=== PATIENT | male | born 1975 | race Caucasian/White ===

== ENCOUNTER → 2016-06-07 | Outpatient (CLI) | payer OTHER ==
[2016-06-07 12:46] LABS: CHLORIDE,CL 102 mmol/L (98-110); SODIUM,NA 139 mmol/L (136-146)
== END ==
LOC: MW.CHFP 11:58
PROVIDERS: ATTEND Emergency Medicine
DX: I10 Essential (primary) hypertension (principal); E78.5 Hyperlipidemia, unspecified; E11.65 Type 2 diabetes mellitus with hyperglycemia
CPT/HCPCS: 36415; 80053; 80061; 82044; 83036

== ENCOUNTER 2017-03-29 05:23 | Emergency (ER) | payer OTHER ==
[2017-03-29] MEDS ORDERED: Diphtheria,Pertussis(Acell),Tetanus Vaccine 0.5 ML Syringe IM ONE (05:29)
[2017-03-29] MEDS ORDERED: Sodium Chloride 0.9% 1,000 ML IV ONE (05:29)
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
[2017-03-29] MEDS ORDERED: LORazepam 2 MG/ML SDV IVPUSH ONE (06:14)
[2017-03-29 06:40] LABS: CHLORIDE,CL 86 mmol/L (98-110); SODIUM,NA 129 mmol/L (136-146)
[2017-03-29 06:49] LABS: ACETAMINOPHEN < 3.0 ug/mL
[2017-03-29] MEDS ORDERED: Insulin Regular, Human 100 Units/ML 10 ML Vial SUBCUT ONE (07:11)
[2017-03-29] MEDS ORDERED: KCL IV SCH (07:15)
[2017-03-29] MEDS ORDERED: NS IV SCH (07:15)
[2017-03-29] MEDS ORDERED: Potassium Chloride 20 MEQ Tab.ER ONE (07:18)
[2017-03-29] MEDS ORDERED: Potassium Chloride 20 MEQ Tab.ER PO ONE (07:22)
[2017-03-29] MEDS ORDERED: Ziprasidone Mesylate 20 MG Vial IM ONE (07:38)
[2017-03-29] MEDS ORDERED: Bacitracin Oint 1 GM U/D Packet TOP ONE (07:38)
[2017-03-29] MEDS ORDERED: Water For Injection, Sterile 20 ML ONE (07:46)
[2017-03-29] MEDS ORDERED: Sodium Chloride 0.9% 1,000 ML IV SCH (08:00)
[2017-03-29] MEDS ORDERED: Ziprasidone Mesylate 20 MG Vial ONE (08:43)
[2017-03-29] MEDS ORDERED: Potassium Chloride 10% 20 MEQ/15 ML Soln 30 ML UD Cup PO SCH (09:00)
--- NOTE | 2017-03-31 13:57 | CR ---
EXAM DATE: 03/29/17 PATIENT'S AGE: 42 Patient: ANILA GUIDRY Facility: [place], [place] Site . Site : 1975 Study: XRay Chest [id number]/3/2018 6:16:42 AM Ordering Physician: Doctor Gill Final Report: Indication: Fall Technique: Chest 1 view. Comparison: May 10, 2013 Findings: Cardiovascular and mediastinum: Heart size and vasculature are normal in caliber and appearance. Mediastinum is within normal limits. Lungs and pleural space: Lungs are clear. No sign of infiltrate or mass. No sign of pleural effusion. No pneumothorax. Bones and soft tissues: No significant findings. Impression: No sign of acute abnormality. Dictated by Lidia Moore MD @ Mar 29 2017 6:33AM (Electronic Signature) Report Signed by Proxy. TANIA
--- NOTE | 2017-03-31 13:58 | CR ---
EXAM DATE: 03/29/17 PATIENT'S AGE: 42 Patient: ANILA GUIDRY Facility: [place], [place] Site . Site : 1975 Study: XRay Knee [id number]/3/2018 6:17:03 AM Ordering Physician: Zelda Olson Final Report: Indication: Fall Technique: Frontal and lateral views bilateral knees Comparison: None Findings: Bones: Alignment is normal. No fractures or subluxation. Joint spaces: Unremarkable. Soft tissues: Unremarkable. Impression: No acute abnormality. Dictated by Lidia Moore MD @ Mar 29 2017 6:35AM (Electronic Signature) Report Signed by Proxy. TANIA
--- NOTE | 2017-03-31 13:59 | CR ---
EXAM DATE: 03/29/17 PATIENT'S AGE: 42 Patient: ANILA GUIDRY Facility: [place], [place] Site . Site : 1975 Study: XRay Pelvis [id number]/3/2018 6:19:23 AM Ordering Physician: Zelda Olson Final Report: Indication: Fall Technique: Frontal view pelvis Comparison: None Findings: Bones: Alignment is normal. No fractures or bone lesions. Joint spaces: Unremarkable. Soft tissues: Unremarkable. Impression: Negative. Dictated by Lidia Moore MD @ Mar 29 2017 6:36AM (Electronic Signature) Report Signed by Proxy. TANIA
== END 2017-03-29 08:53 ==
LOC: MW.ED 05:23
DX: E87.6 Hypokalemia (principal); E87.1 Hypo-osmolality and hyponatremia; E11.65 Type 2 diabetes mellitus with hyperglycemia; R44.1 Visual hallucinations; Z79.899 Other long term (current) drug therapy
CPT/HCPCS: 36415; 71045; 72170; 73560; 80053; 80305; 81001; 82962; 84443; 85025; 90715; 93005; 96361; 96365; 96372; 96375; 99285; A9270; G0480; J2060; J3480; J3486; J7040; J7050; 99283; J1815-GY

== ENCOUNTER 2022-07-05 06:59 | Emergency (ER) | payer OTHER ==
[2022-07-05] MEDS ORDERED: Lactated Ringers 1,000 ML IV ONE (07:13)
[2022-07-05] MEDS ORDERED: Ondansetron 4 MG/2 ML SDV IVPUSH ONE (07:13)
[2022-07-05] MEDS ORDERED: LORazepam 2 MG/ML SDV IVPUSH ONE (07:13)
[2022-07-05 07:29] LABS: APPEARANCE,URINE CLEAR; BILIRUBIN,URINE NEGATIVE (NEGATIVE); COLOR,URINE YELLOW; GLUCOSE,URINE 500 mg/dL (NEGATIVE); KETONES,URINE TRACE mg/dL (NEGATIVE); LEUKOCYTE ESTERASE,URINE NEGATIVE (NEGATIVE); NITRITE,URINE NEGATIVE (NEGATIVE); OCCULT BLOOD,URINE NEGATIVE (NEGATIVE); PH,URINE 6.5 (5.0-8.0); PROTEIN,URINE NEGATIVE (NEGATIVE); UROBILINOGEN,URINE 0.2 EU/dL (<2.0)
[2022-07-05 07:59] LABS: BASOPHILS PERCENT AUTO 0.2 % (0.0-1.5); EOSINOPHILS PERCENT AUTO 0.2 % (0.0-7.0); HEMATOCRIT 38.2 % (38.0-50.0); HEMOGLOBIN 14.3 g/dL (13.0-17.0); LYMPHOCYTES PERCENT AUTO 16.9 % (16.0-40.0); MEAN CORPUSCULAR HEMOGLOBIN 31.8 pg (27.0-32.0); MEAN CORPUSCULAR HGB CONC 37.4 g/dL (31.0-37.0); MEAN CORPUSCULAR VOLUME 85.1 fL (80.0-98.0); MONOCYTES ABSOLUTE AUTO 0.5 K/uL (0.0-0.8); MONOCYTES PERCENT AUTO 7.7 % (0.0-15.0); NEUTROPHILS ABSOLUTE AUTO 4.4 K/uL (1.4-5.7); NRBC ABSOLUTE 0 K/uL; PLATELET COUNT,PLT 192 K/uL (150-400); RED BLOOD CELL COUNT 4.49 M/uL (4.50-5.90); WHITE BLOOD CELL COUNT,WBC 5.85 K/uL (4.0-11.0)
[2022-07-05] MEDS ORDERED: Pantoprazole 40 MG in Sodium Chloride 0.9% 10 ML IVPUSH ONE (08:09)
[2022-07-05] MEDS ORDERED: Famotidine 20 MG/2 ML SDV IVPUSH ONE (08:09)
[2022-07-05] MEDS ORDERED: Alum Hydro/Mag Hydro/Simeth XS 15 ML, Lidocaine 2% 5 ML PO ONE ×2 (08:09)
[2022-07-05 08:17] LABS: INR 0.96 (0.86-1.11)
[2022-07-05 08:23] LABS: A/G RATIO 1.3 (0.9-1.6); BILIRUBIN TOTAL 1.9 mg/dL (0.2-1.0); CALCIUM 8.4 mg/dL (8.5-10.1); CARBON DIOXIDE,CO2 25.6 mmol/L (21.0-32.0); CREATININE 0.9 mg/dL (0.8-1.3); EST CRCL DRUG DOSING (CG) 119.24 mL/min; POTASSIUM,K 4.5 mmol/L (3.5-5.1); PROTEIN TOTAL,TP 7.2 g/dL (6.4-8.2)
== END 2022-07-05 12:54 | disposition home or self-care (01) ==
LOC: MW.ED 06:59
DX: F10.239 Alcohol dependence with withdrawal, unspecified (principal); E87.1 Hypo-osmolality and hyponatremia; E11.9 Type 2 diabetes mellitus without complications
CPT/HCPCS: 36415; 76705; 80053; 81003; 82009; 83690; 83735; 85025; 85610; 96361; 96374; 96375; 99284; A9270; C9113; J2060; J2405; J3490; J7120

== ENCOUNTER 2025-01-06 11:52 | Inpatient (IN) | payer OTHER ==
[2025-01-06] MEDS: Pantoprazole 80 MG in Sodium Chloride 0.9% 20 ML IVPUSH ONE (12:22)
[2025-01-06] MEDS: Ondansetron 4 MG/2 ML SDV IVPUSH ONE (12:23)
[2025-01-06] MEDS: LORazepam 2 MG/ML SDV IVPUSH ONE (12:23)
[2025-01-06 12:24] LABS: BASOPHILS ABSOLUTE AUTO 0.04 K/uL (0.00-0.20); BASOPHILS PERCENT AUTO 0.4 % (0.0-1.0); EOSINOPHILS ABSOLUTE AUTO 0.02 K/uL (0.00-0.45); EOSINOPHILS PERCENT AUTO 0.2 % (0.0-6.0); IMMATURE GRAN ABSOLUTE AUTO 0.03 K/uL (0.00-0.05); IMMATURE GRAN PERCENT AUTO 0.3 % (0.0-0.4); LYMPHOCYTES ABSOLUTE AUTO 1.82 K/uL (1.00-4.80); LYMPHOCYTES PERCENT AUTO 17.4 % (24.0-44.0); MEAN PLATELET VOLUME 8.3 fL (9.4-12.4); MONOCYTES ABSOLUTE AUTO 0.42 K/uL (0.00-0.80); MONOCYTES PERCENT AUTO 4.0 % (0.0-8.0); NEUTROPHILS ABSOLUTE AUTO 8.15 K/uL (1.80-7.70); NEUTROPHILS PERCENT AUTO 77.7 % (41.0-71.0); NRBC ABSOLUTE 0.00 K/uL (0.00-0.02); NRBC PERCENT 0.0 /100WBC (0.0-0.2); PLATELET COUNT,PLT 320 K/uL (150-400); RED BLOOD CELL COUNT 5.75 M/uL (4.52-5.90); WHITE BLOOD CELL COUNT,WBC 10.48 K/uL (3.9-11.3)
[2025-01-06 12:28] LABS: INR 0.93 (0.86-1.11)
[2025-01-06 12:44] LABS: A/G RATIO 1.3 (0.9-1.6); ALANINE AMINOTRANSFERASE,ALT 44.0 IU/L (14-63); ASPARTATE AMNIOTRANSFERASE,AST 33.0 IU/L (15-37); BILIRUBIN TOTAL 1.4 mg/dL (0.2-1.0); BLOOD UREA NITROGEN,BUN 9.0 mg/dL (7.0-18.0); CARBON DIOXIDE,CO2 27.0 mmol/L (21.0-32.0); CHLORIDE,CL 94.0 mmol/L (98-107); CREATININE 1.1 mg/dL (0.8-1.3); EST CRCL DRUG DOSING (CG) 94.45 mL/min; GLUCOSE RANDOM 185.0 mg/dL (74-106); POTASSIUM,K 4.8 mmol/L (3.5-5.1); PROTEIN TOTAL,TP 8.5 g/dL (6.4-8.2); SODIUM,NA 134.0 mmol/L (136-148)
[2025-01-06 12:46] LABS: ESTIMATED GFR 82.0 mL/min (>60)
[2025-01-06 13:08] LABS: APPEARANCE,URINE CLEAR; GLUCOSE,URINE NEGATIVE (NEGATIVE); OCCULT BLOOD,URINE NEGATIVE (NEGATIVE)
[2025-01-06 13:16] LABS: EPITHELIAL CELLS,URINE RARE (NONE-FEW)
[2025-01-06] MEDS: Iopamidol 755 MG/ML 500 ML Multipack Bottle IVPUSH STA (13:33)
[2025-01-06] MEDS ORDERED: Sodium Chloride 0.9% 10 ML Syringe FLUSH PRN (16:12)
[2025-01-06] MEDS ORDERED: Sodium Chloride 0.9% 2.5 ML Syringe FLUSH PRN (16:12)
[2025-01-06] MEDS ORDERED: 50% Dextrose in Water 50 ML Syringe IVPUSH PRN (16:31)
[2025-01-06] MEDS ORDERED: Naloxone 0.4 MG/ML SDV IVPUSH PRN (16:32)
[2025-01-06] MEDS: Thiamine 200 MG/2 ML MDV IVPUSH SCH (16:41)
[2025-01-06] MEDS: Folic Acid 1 MG/0.2 ML UD Syringe IV SCH (16:42)
[2025-01-06] MEDS: Ondansetron 4 MG/2 ML SDV IVPUSH PRN (16:42)
[2025-01-06] MEDS: Sucralfate Suspension 1 GM/10 ML Cup PO SCH (17:29)
[2025-01-06] MEDS: Pantoprazole 40 MG in Sodium Chloride 0.9% 10 ML IVPUSH SCH (21:00)
[2025-01-06] MEDS ORDERED: Insulin Glargine,Human Rec. Analog 100 Units/ML 3 ML Pen SUBCUT SCH (21:00)
[2025-01-06] MEDS: Insulin Glargine,Human Rec. Analog 100 Units/ML 3 ML Pen SUBCUT SCH (21:08)
[2025-01-07 05:51] LABS: BASOPHILS ABSOLUTE AUTO 0.05 K/uL (0.00-0.20); BASOPHILS PERCENT AUTO 0.7 % (0.0-1.0); EOSINOPHILS ABSOLUTE AUTO 0.05 K/uL (0.00-0.45); EOSINOPHILS PERCENT AUTO 0.7 % (0.0-6.0); IMMATURE GRAN ABSOLUTE AUTO 0.01 K/uL (0.00-0.05); IMMATURE GRAN PERCENT AUTO 0.1 % (0.0-0.4); LYMPHOCYTES ABSOLUTE AUTO 1.95 K/uL (1.00-4.80); LYMPHOCYTES PERCENT AUTO 27.4 % (24.0-44.0); MEAN PLATELET VOLUME 8.3 fL (9.4-12.4); MONOCYTES ABSOLUTE AUTO 0.63 K/uL (0.00-0.80); MONOCYTES PERCENT AUTO 8.8 % (0.0-8.0); NEUTROPHILS ABSOLUTE AUTO 4.43 K/uL (1.80-7.70); NEUTROPHILS PERCENT AUTO 62.3 % (41.0-71.0); NRBC ABSOLUTE 0.00 K/uL (0.00-0.02); NRBC PERCENT 0.0 /100WBC (0.0-0.2); PLATELET COUNT,PLT 213 K/uL (150-400); RED BLOOD CELL COUNT 4.12 M/uL (4.52-5.90); WHITE BLOOD CELL COUNT,WBC 7.12 K/uL (3.9-11.3)
[2025-01-07 06:06] LABS: INR 1.03 (0.86-1.11)
[2025-01-07 06:19] LABS: A/G RATIO 1.3 (0.9-1.6); ALANINE AMINOTRANSFERASE,ALT 32.0 IU/L (14-63); ASPARTATE AMNIOTRANSFERASE,AST 24.0 IU/L (15-37); BILIRUBIN TOTAL 2.0 mg/dL (0.2-1.0); BLOOD UREA NITROGEN,BUN 11.0 mg/dL (7.0-18.0); CARBON DIOXIDE,CO2 26.8 mmol/L (21.0-32.0); CHLORIDE,CL 97.0 mmol/L (98-107); CREATININE 0.9 mg/dL (0.8-1.3); EST CRCL DRUG DOSING (CG) 115.44 mL/min; GLUCOSE RANDOM 102.0 mg/dL (74-106); PHOSPHORUS 3.6 mg/dL (2.6-4.7); POTASSIUM,K 3.9 mmol/L (3.5-5.1); PROTEIN TOTAL,TP 6.2 g/dL (6.4-8.2); SODIUM,NA 134.0 mmol/L (136-148)
[2025-01-07 06:27] LABS: ESTIMATED GFR 105.0 mL/min (>60)
[2025-01-07] MEDS: Magnesium Sulfate 2 GM/50 mL 2 GM in Premix Bag 1 BAG IV ONE (08:49)
== END 2025-01-07 15:40 | disposition home or self-care (01) | DRG 896 ==
LOC: MW.ED 11:52 → OBSVTOIN 15:02 → MW.MS 15:02 → MW.ED 15:48
PROVIDERS: ADMIT Internal Medicine; ATTEND Internal Medicine
DX: F10.130 Alcohol abuse with withdrawal, uncomplicated (principal); K29.21 Alcoholic gastritis with bleeding; I10 Essential (primary) hypertension; E11.9 Type 2 diabetes mellitus without complications; F41.9 Anxiety disorder, unspecified; E78.5 Hyperlipidemia, unspecified; Z79.4 Long term (current) use of insulin; Z79.82 Long term (current) use of aspirin; Z79.899 Other long term (current) drug therapy; Z98.890 Other specified postprocedural states
CPT/HCPCS: 36415; 71045; 71045-26; 74177; 74177-26; 80053; 81001; 82947; 83690; 83735; 84100; 84484; 85025; 85610; 85730; 86850; 86900; 86901; 96361; 96374; 96375; 99284; 99285-25; A9270-GY; J1171; J1808; J1815-GY; J2060; J2405; J2470; J2560; J3411; J3475; J7030; Q9967